=== PATIENT | female | born 1980 | race Caucasian/White ===

== ENCOUNTER 2020-12-14 14:51 | Emergency (ER) | payer SELFPAY ==
--- NOTE | 2020-12-14 15:15 | PC.NURSE ---
Call to waiting room, no answer. Per other patients waiting in waiting room pt was seen going to her car and leaving.
== END 2020-12-14 15:15 | disposition left against medical advice (07) ==
LOC: ANHED 17:41
DX: Z53.21 Procedure and treatment not carried out due to patient leaving prior to being seen by health care provider (principal)
CPT/HCPCS: 99199

== ENCOUNTER 2020-12-14 16:20 | Observation (INO) | payer SELFPAY ==
--- NOTE | ~2020-12-14 | CT_ITS ---
EXAMINATION: CT abdomen pelvis w con INDICATION: Generalized abdominal pain TECHNIQUE: Computed tomographic images of the abdomen and pelvis were obtained after the administrati on of 100 cc of Omnipaque 350 intravenous contrast. The dose-length product (DLP) was 1044.95 mGy-cm. Automated exposure control and iterative reconstruction technique were employed. COMPARISON: None available FINDINGS: The lung bases are clear. The heart size is normal. There is a small sliding hiatal hernia. The liver is diffusely low in attenuation when compared with the spleen, consistent with hepatic alisia atosis. The spleen, pancreas, gallbladder, and right adrenal gland are normal. There is a 1.4 cm mass of the left. The kidneys are unremarkable. No pathologically enlarged abdominal or pelvic lymph node s are identified. There is no free intraperitoneal gas or evidence of bowel obstruction. IMPRESSION: 1. No CT correlate for the patient's symptoms. 2. 1.4 cm left adrenal mass, likely benign in the absence of known malignancy. Consider follow-up adr enal CT in 12 months. Reviewed, dictated and finalized at location A. IMPRESSION: 1. No CT correlate for the patient's symptoms. 2. 1.4 cm left adrenal mass, likely benign in the absence of known malignancy. Consider follow-up adrenal CT in 12 months.
[2020-12-14 16:46] VITALS: BP 125/89; PULSE 64; RESP 18; TEMP 36.8; O2SAT 100
--- NOTE | 2020-12-14 16:50 | PC.NURSE ---
pt noted to have scarring to where one would draw labs. pt to be drawn in back when placed in room.
--- NOTE | 2020-12-14 17:04 | PC.NURSE ---
When pt placed back in waiting room, states this is the slowest [facility] I've ever been to . Explained to patient that it is very busy and that there are multiple people waitiing to be seen. Pt states I'm calling an ambulance and going somewhere else . Explained to patient that that is her right. Also explained that I will remove the IV if she is planning to leave. Pt requesting ice chips po. Explained that due to pt's complaint pf n/v that we cannot give her anything to drink.
--- NOTE | 2020-12-14 17:09 | PC.NURSE ---
Pt yelling loudly and wretching loudly. Pt has had large amt of emesis on floor in waiting room, yelling help me! Oh My God I'm dying!! . Note half drank bottle of water near patient. Pt given emesis bag and told not to drink any further water.
--- NOTE | 2020-12-14 18:28 | PC.NURSE ---
Pt up to intake desk, lying on desk, crying, moaning loudly, take me back now, I'm dying!! . Explained that no bed is available at this time. Pt continues to moan loudly and complain loudly about the wait and that she is unable to wait any longer. Teresa, bumper machine operator to desk to speak with patient and assist back to waiting room. Pt continues to yell loudly oh please, God, please!! .
[2020-12-14 18:53] VITALS: PULSE 61; RESP 14; O2SAT 98
[2020-12-14 19:00] VITALS: PULSE 70; RESP 16; O2SAT 98
--- NOTE | 2020-12-14 19:09 | ED.GENADULT ---
HPI - General Adult General Chief complaint: Abdominal Pain Stated complaint: abd pain/n/v/d Time Seen by Provider: 12/14/20 19:06 Source: RN notes reviewed History of Present Illness HPI narrative: Patient presents to emergency department from home for nausea vomiting. Patient states she has been having intractable nausea vomiting since yesterday associated with abdominal pain in the mid abdomen. Pain is described as cramping in nature. Patient denies any fevers or chills chest pain shortness of breath diarrhea or any other symptoms. States she is started on Suboxone approximately 1 week ago for heroin use denies any heroin use in the past 1 week Related Data Home Medications Medication Instructions Recorded Confirmed Suboxone 12/14/20 Allergies Allergy/AdvReac Type Severity Reaction Status Date / Time No Known Allergies Allergy Verified 12/14/20 16:51 Review of Systems Review of Systems: Narrative: Gen.: Denies fevers or chills ENT: Denies congestion Respiratory: Denies shortness of breath or cough CV: Denies chest pain or palpitations GI: See HPI denies burning, urgency, frequency or hematuria Musculoskeletal: Denies back pain or muscle pain Neuro: Denies numbness, tingling, weakness or focal weakness Skin: Denies rash Except as documented, all other systems reviewed and negative PMFSH Past Medical History Medical History (Updated 12/15/20 @ 00:31 by Juan Fernandez DO) Patient denies significant medical history Social History Social History (Updated 12/14/20 @ 19:10 by Juan Fernandez DO) Smoking status: Current every day smoker Gender identity (if verbalized by the patient): Female Exam Narrative: Exam Narrative: APPEARANCE: No acute distress, nontoxic, resting in bed HEENT: Normocephalic, atraumatic, OMM RESPIRATORY: No respiratory distress, clear to auscultation bilaterally with no rhonchi wheezing or rales CARDIOVASCULAR: RRR s murmur ABDOMINAL: Soft nondistended tender to palpation epigastric and right upper quadrant left upper quadrant no tenderness in right lower quadrant left lower quadrant no rebound or guarding MUSCULOSKELETAl: Moves all extremities. No clubbing, cyanosis or edema. NEURO: Awake and alert. Following commands, speech normal, no focal deficits SKIN:: Warm, dry. 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 Russo presentation work-up agrees with admission at this time Discussed with patient and family results of workup and diagnosis. Discussed need for admission. Patient and family understand and agree to current treatment plan Vital Signs Vital signs: Vital Signs Temperature 98.2 F 12/14/20 16:46 Pulse Rate 64 12/14/20 16:46 Respiratory Rate 18 12/14/20 16:46 Blood Pressure 125/89 12/14/20 16:46 Pulse Oximetry 100 12/14/20 16:46 Temperature 98.2 F 12/14/20 16:46 Pulse Rate 69 12/14/20 22:31 Respiratory Rate 18 12/14/20 22:31 Blood Pressure 142/89 H 12/14/20 22:31 Pulse Oximetry 97 12/14/20 22:31 Medical Decision Making Vital Signs Vital Signs: Vital Signs Temperature 98.2 F 12/14/20 16:46 Pulse Rate 64 12/14/20 16:46 Respiratory Rate 18 12/14/20 16:46 Blood Pressure 125/89 12/14/20 16:46 Pulse Oximetry 100 12/14/20 16:46 Temperature 98.2 F 12/14/20 16:46 Pulse Rate 69 12/14/20 22:31 Respiratory Rate 18 12/14/20 22:31 Blood Pressure 142/89 H 12/05
--- NOTE | 2020-12-14 19:16 | PC.NURSE ---
Pt. in room screaming help me, help me, help me, I need help now! Pt. being unreasonable. Pt. asked to stop screaming so they can be assessed. Pt. complies.
[2020-12-14] MEDS: SODIUM CHLORIDE 0.9% IV 1,000 ML 999 ML IV CONT ×2 (19:27→22:42)
[2020-12-14] MEDS: ONDANSETRON INJ 4 MG/2 ML VIAL IV PUSH (19:28)
[2020-12-14] MEDS: KETOROLAC 30 MG/ML VIAL (*BKC) IV PUSH (19:28)
[2020-12-14 19:32] VITALS: BP 145/90; PULSE 54; RESP 20; O2SAT 100
[2020-12-14 19:34] LABS: Basophils Percent Auto 0.3 % (0.2-1.2); Hematocrit 46.2 % (37.0-47.0); Hemoglobin 14.5 g/dL (12.0-15.0); Immature Granulocyte Absolute 0.04 K/mm3 (0.00-0.031); Immature Granulocyte Percent A 0.3 % (0-0.5); Lymphocytes Absolute Auto 1.79 K/mm3 (0.9-3.2); Lymphocytes Percent Auto 12.9 % (18.3-44.2); Mean Corpuscular HGB Conc 31.4 g/dl (32-36); Mean Corpuscular Hemoglobin 25.3 pg (26-34); Mean Corpuscular Volume 80.5 fl (80-100); Mean Platelet Volume 9.1 fl (7.4-10.4); Monocytes Absolute Auto 0.6 K/mm3 (0.1-0.6); Monocytes Percent Auto 4.4 % (2.6-8.5); Neutrophils Absolute Auto 11.4 K/mm3 (1.3-6.7); Neutrophils Percent Auto 82.1 % (45.5-73.1); Platelet Count Result 327 k/mm3 (150-375); Red Blood Count 5.74 M/mm3 (4.2-5.4); Red Cell Distribution Width 13.9 % (11.5-14.5); White Blood Count 13.9 K/mm3 (4.5-10.0)
[2020-12-14 19:45] LABS: Alanine Aminotransferase 61 U/L (4-35); Albumin Level 4.4 g/dL (3.5-5.1); Alkaline Phosphatase 135 U/L (38-126); Anion Gap 7 mmol/L (8-16); Aspartate Amino Transferase 48 U/L (14-36); Bilirubin,Total 0.7 mg/dL (0.2-1.3); Blood Urea Nitrogen 12 mg/dL (7-17); Carbon Dioxide 24 mmol/L (22-30); Chloride 107 mmol/L (98-107); Estimated CRCL calculation 113 ml/min; Estimated Glomerular Filt Rate > 60; Glucose 112 mg/dL (65-105); Lipase 45 U/L (23-300); Potassium 3.9 mmol/L (3.4-5.0); Sodium 138 mmol/L (137-145)
[2020-12-14] MEDS: LORazepam INJ (*CRX) 2 MG/ML VIAL 1 MG IV PUSH (20:33)
[2020-12-14 20:40] LABS: Add Urine Microscopic? YES; Appearance Urine Cloudy (Clear); Bacteria Urine Trace /hpf; Bilirubin Urine Negative (Negative); Blood Urine 1+ (Negative); Color Urine Yellow (Yellow); Glucose Urine UA Negative (Negative); Ketones Urine 1+ mg/dL (Negative); Leukocyte Esterase Ur Negative LEU/UL (Negative); Mucus Urine Heavy /lpf; Nitrate Urine Negative (Negative); Protein Urine 2+ mg/dL (Negative); Specific Grav Ur 1.028 (1.001-1.035); Squamous Epithelial Cell Urine Moderate /hpf (Few); WBC Urine 0-3 /hpf
[2020-12-14 22:31] VITALS: BP 142/89; PULSE 69; RESP 18; O2SAT 97
[2020-12-14] MEDS: DICYCLOMINE HCL INJ 20 MG/2 ML VIAL IM (22:42)
[2020-12-14] MEDS: PROMETHAZINE HCL 25 MG/ML AMPUL 12.5 MG IV PUSH (22:42)
[2020-12-14] MEDS: SODIUM CHLORIDE 0.9% IV 50 ML 100 ML (22:43)
[2020-12-14] MEDS: PANTOPRAZOLE SODIUM IV 40 MG VIAL IV PUSH (23:48)
[2020-12-15] MEDS: diphenhydrAMINE HCl INJ 50 MG/ML VIAL 25 MG IV PUSH (00:07)
[2020-12-15 00:20] VITALS: BP 154/83; PULSE 62; RESP 18; TEMP 37.2; O2SAT 100; BMI 33.7
--- NOTE | 2020-12-15 00:41 | ADMGEN ---
This patient, Ayesha Velasquez, was admitted to [facility] Surg Room 333-01. Patient/family oriented to hospital policies and general routines including ID bracelet, bed and alarms, visiting hours, pain management, procedures, bathroom and other care routines, personal items, smoking policy, room service/diet, and visiting hours. Information on how to activate the Rapid Response Team has been discussed. Patient/Family are encouraged to report perceived risks to care and to ask questions if they do not understand what they are told or what they should do.
--- NOTE | 2020-12-15 03:08 | PM.IMHP ---
H&P: HPI History of Present Illness Date/Time: 12/15/20 03:08 patient who is lives in [place]. The patient stated that she is here for a work related event. The patient has a history of heroin use and had been in rehab in the past. The patient is on some back some for heroin withdrawal. However the patient stated she no longer wants to take some back stone. And that she had been on clonidine in the past. She had been crying in the emergency room. The patient stated that she has intractable nausea vomiting since yesterday and abdominal pain. She has cramping pain. She denies any fevers chills or shortness of breath. No diarrhea. Patient stated the last time she used heroin was approximately week ago. Her CT of the abdomen was read as no acute CT correlate for the patient's symptoms. 1.4 cm left adrenal mass, likely benign in the absence of known malignancy consider follow-up adrenal CT in 12 months. IV fluids but her IV has gone bad since then and we have not been able to replace it. She has gotten Zofran, Toradol, Ativan, Phenergan, Bentyl IM, IV Tylenol, Benadryl and Protonix. The patient is being admitted to observation status on the date of service of 12/15/2020. Chief Complaint: Intractable nausea vomiting. Review of Systems Review of Systems: All systems reviewed & are unremarkable except as noted in HPI and below Constitutional: Constitutional: Reports as per HPI and Reports no additional constitutional complaints Eyes: Eyes: Reports as per HPI and Reports no additional eye complaints ENT: Reports system reviewed and no additional complaints, except as documented and Reports Normal hearing present Cardiovascular: Cardiovascular: Reports no additional cardiovascular complaints Respiratory: Respiratory: Reports no additional respiratory complaints and Reports no additional respiratory complaints Gastrointestinal: Gastrointestinal: Reports as per HPI and Reports no additional gastrointestinal complaints Musculoskeletal: Musculoskeletal: Reports no additional musculoskeletal complaints Integumentary/Breasts: Skin/Breast: Reports system reviewed and no additional complaints, except as docu and Reports as per HPI Neurologic: Reports system reviewed and no additional complaints, except as documented, Reports as per HPI and Reports Normal hearing present Psychiatric: Psychiatric: Reports no additional psychiatric complaints and Reports as per HPI Endocrine: Endocrine: Reports no additional endocrine complaints Hematologic/Lymphatic: Hematologic/Lymphatic: Reports no additional hematologic/lymphatic complaints Allergic/Immunologic: Allergic/Immunologic: Reports no additional allergic/immunologic complaints PMFSH Past Medical History Medical History (Updated 12/15/20 @ 03:16 by Moon Sousa NP) Heroin abuse Patient denies significant medical history Tobacco abuse Surgical History Surgical History (Updated 12/15/20 @ 03:16 by Moon Sousa NP) H/O abdominal surgery Family History Family History Mother Depression Social History Social History (Updated 12/15/20 @ 03:24 by Moon Sousa NP) Social History: 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 Patient smokes a pack cigarettes a day. She does not have a durable power commercial attorney and is listed as a full code. The patient told staff that she is traveling for a job to work a [employer] unit. The patient stated that she does not have any children and that she is . Smoking packs per day: 1 Smoking cigarettes per day: 20.0 Smoking status: Current every day smoker Tobacco type: cigarettes Alcohol intake: never Substance use: current Substance use type: marijuana Other substance usage details: former heroin user per pt Gender identity (if verbalized by the patient): Female Spirit
[2020-12-15] MEDS: HALOPERIDOL LACTATE 5 MG/ML VIAL IM (03:48)
[2020-12-15] MEDS: LORazepam (*CRX) 0.5 MG TABLET PO ×3 (05:43→20:33)
[2020-12-15 06:00] VITALS: BP 148/80; PULSE 70; RESP 18; TEMP 36.6; O2SAT 100
[2020-12-15 06:09] LABS: Basophils Absolute Auto 0.1 K/mm3 (0.0-0.1); Basophils Percent Auto 0.5 % (0.2-1.2); Hematocrit 38.7 % (37.0-47.0); Hemoglobin 12.4 g/dL (12.0-15.0); Immature Granulocyte Absolute 0.07 K/mm3 (0.00-0.031); Immature Granulocyte Percent A 0.5 % (0-0.5); Lymphocytes Absolute Auto 3.14 K/mm3 (0.9-3.2); Mean Corpuscular Hemoglobin 25.4 pg (26-34); Mean Corpuscular Volume 79.3 fl (80-100); Mean Platelet Volume 9.4 fl (7.4-10.4); Monocytes Absolute Auto 1.1 K/mm3 (0.1-0.6); Monocytes Percent Auto 7.5 % (2.6-8.5); Neutrophils Absolute Auto 10.6 K/mm3 (1.3-6.7); Neutrophils Percent Auto 70.5 % (45.5-73.1); Platelet Count Result 304 k/mm3 (150-375); Red Blood Count 4.88 M/mm3 (4.2-5.4); Red Cell Distribution Width 13.7 % (11.5-14.5)
[2020-12-15 06:25] LABS: Alanine Aminotransferase 48 U/L (4-35); Albumin Level 3.9 g/dL (3.5-5.1); Alkaline Phosphatase 127 U/L (38-126); Anion Gap 5 mmol/L (8-16); Aspartate Amino Transferase 31 U/L (14-36); Bilirubin,Total 0.5 mg/dL (0.2-1.3); Blood Urea Nitrogen 12 mg/dL (7-17); Calcium 8.6 mg/dL (8.4-10.2); Carbon Dioxide 24 mmol/L (22-30); Chloride 108 mmol/L (98-107); Estimated CRCL calculation 138 ml/min; Estimated Glomerular Filt Rate > 60; Glucose 102 mg/dL (65-105); Lactate Dehydrogenase 371 U/L (313-618); Magnesium 1.7 mg/dL (1.6-2.3); Potassium 3.3 mmol/L (3.4-5.0); Sodium 137 mmol/L (137-145)
[2020-12-15] MEDS: FAMOTIDINE 20 MG TABLET PO ×2 (09:38→20:34)
[2020-12-15] MEDS: cloNIDine HCL 0.05 MG TABLET PO ×2 (09:38→20:34)
[2020-12-15] MEDS: ONDANSETRON HCL ODT 4 MG TABLET PO (09:41)
[2020-12-15] MEDS: ENOXAPARIN 40 MG/0.4 ML SYRINGE SUB-Q (09:43)
--- NOTE | 2020-12-15 11:45 | PM.IMPN ---
Progress Note: A&P Additional Plan # Acute gastroenteritis with intractable nausea, vomiting, diarrhea: zofran prn. she has been off iv heroin about a week ago and has been on suboxone. no other symptoms of opiate withdrawal on evaluation. unlikely reason. likely acute gastroenteritis. will get stool cutlure, ova and parasite. on PPI. urine drug screen pending. # abdominal pain: likelyf rom agastroenteirtis. on famotidine. lipiase normal. # heroin abuse: recently put on suboxone. advised to continue suboxone for opioid dependence and to decrease relapse. on clonidine for withdrawal which will be continued. # left adrenal Mass: FU CT in a year as o pbasis. # Tobacco abuse: # leukocytosis: still high. unclear etiology. may be from gastroenteritis. # hypokalemia: repalce k # DVT proph: lovenox Subjective Date/time seen: 12/15/20 11:45 Interval history: feels better, some abdmoinal pain, but feels hungry. no further diarrhea. nausea present, no vomiting. she would liek to try some jello Review of Systems Review of Systems: Narrative: - CONSTITUTIONAL: Denies weight loss, fever and chills. - HEENT: Denies changes in vision and hearing - RESPIRATORY: Denies SOB and cough. - CV: Denies palpitations and CP. - GI: reports abdominal pain, nausea, vomiting and diarrhea. - : Denies dysuria and urinary frequency. - MSK: Denies myalgia and joint pain. - SKIN: Denies rash and pruritus. - NEUROLOGICAL: Denies headache and syncope. - PSYCHIATRIC: Denies recent changes in mood. Denies anxiety and depression. All systems reviewed & are unremarkable except as noted in HPI and below Exam Narrative: Exam Narrative: GENERAL: The patient is well developed, not in acute distress HEENT: Nonicteric sclerae, PERRLA, EOMI. Oropharynx clear. Moist mucous membranes. Conjunctivae appear well perfused. CHEST: Chest wall is nontender. HEART: Regular rate and rhythm without murmur, rubs, or gallops LUNGS: Clear to auscultation bilaterally. no respiratory distress ABDOMEN: Soft, positive bowel sounds, tender epigastric region, no organomegaly. SKIN: No rash, no excessive bruising, petechiae, or purpura. NEUROLOGIC: Cranial nerves II-XII intact, alert and oriented x 3, no gross motor deficits EXTREMITIES: no edema, cyanosis or clubbing Objective Data Vital Signs Vital Signs: Vital Signs - 24 hr 12/14/20 16:46 12/14/20 18:53 12/14/20 19:00 Temperature 98.2 F Pulse Rate 64 61 70 Respiratory Rate 18 14 16 Blood Pressure 125/89 Pulse Oximetry 100 98 98 12/14/20 19:32 12/14/20 22:31 12/15/20 00:20 Temperature 99 F Pulse Rate 54 L 69 62 Respiratory Rate 20 18 18 Blood Pressure 145/90 H 142/89 H 154/83 H Pulse Oximetry 100 97 100 12/15/20 06:00 Temperature 97.8 F Pulse Rate 70 Respiratory Rate 18 Blood Pressure 148/80 H Pulse Oximetry 100 Intake/Output Intake/Output: Intake & Output 12/12/20 12/13/20 12/14/20 12/15/20 23:59 23:59 23:59 23:59 Intake Total 1999 0 Balance 1999 0 Meds/Results Medications: Active Medications Generic Name Dose Route Start Last Admin Trade Name Freq PRN Reason Stop Dose Admin Clonidine HCl 0.05 mg 12/15/20 09:00 12/15/20 09:38 Clonidine Hcl 0.05 Mg Tablet PO 0.05 mg Q12HR JEFF Administration Enoxaparin Sodium 40 mg 12/15/20 09:00 12/15/20 09:43 Enoxaparin 40 Mg/0.4 Ml Syringe SUB-Q 40 mg DAILY JEFF Administration Famotidine 20 mg 12/15/20 09:00 12/15/20 09:38 Famotidine 20 Mg Tablet PO 20 mg Q12HR JEFF Administration Lorazepam 0.5 mg 12/15/20 03:07 12/15/20 05:43 Lorazepam (*Crx) 0.5 Mg Tablet PO 0.5 mg Q6H PRN Administration Anxiety Nicotine 1 patch 12/15/20 09:00 12/15/20 09:41 Nicotine (*Pbkc) 21 Mg Patch TRANSDERM Not Given QAM JEFF Ondansetron HCl 4 mg 12/15/20 03:18 12/15/20 09:41 Ondansetron Hcl Odt 4 Mg Tablet PO 4 mg Q6H PRN Administration Nausea And Vomiting Radiology Results: IT
[2020-12-15] MEDS: POTASSIUM CHLORIDE 20 MEQ TABLET 40 MEQ PO (12:39)
[2020-12-15] MEDS: NICOTINE (*PBKC) 21 MG PATCH 1 PATCH TRANSDERM (12:39)
[2020-12-15 14:00] VITALS: BP 131/68; PULSE 99; RESP 18; TEMP 36.6; O2SAT 99
[2020-12-15] MEDS: MAGNESIUM OXIDE 400 MG TABLET PO (14:30)
[2020-12-15 15:42] VITALS: PULSE 89; RESP 16; O2SAT 99
[2020-12-15 17:26] LABS: Amphetamine Screen Urine Negative (Negative); Barbiturate Screen Urine Negative (Negative); Benzodiazepines Screen Urine Negative (Negative); Cannabinoid Screen Urine Positive (Negative); Cocaine Screen Urine Negative (Negative); Methadone Screen Urine Negative (Negative); Opiate Screen Urine Negative (Negative); Phencyclidine Screen Urine Negative (Negative)
[2020-12-15] MEDS: KETOROLAC 15 MG/ML VIAL (*BKC) IV PUSH (20:32)
[2020-12-15 22:00] VITALS: BP 151/79; PULSE 94; RESP 18; TEMP 36.4; O2SAT 98
[2020-12-16] MEDS: traMADol HCL (*CRX) 25 MG TABLET PO (03:10)
[2020-12-16] MEDS: LORazepam (*CRX) 0.5 MG TABLET PO ×2 (03:10→09:12)
[2020-12-16 06:00] VITALS: BP 149/76; PULSE 53; RESP 16; TEMP 36.3; O2SAT 100
[2020-12-16 08:22] LABS: Basophils Absolute Auto 0.1 K/mm3 (0.0-0.1); Basophils Percent Auto 0.8 % (0.2-1.2); Eosinophils Percent Auto 0.4 % (0-4.4); Hematocrit 44.4 % (37.0-47.0); Hemoglobin 14.2 g/dL (12.0-15.0); Immature Granulocyte Absolute 0.11 K/mm3 (0.00-0.031); Immature Granulocyte Percent A 1.1 % (0-0.5); Lymphocytes Percent Auto 25.7 % (18.3-44.2); Mean Corpuscular Hemoglobin 25.6 pg (26-34); Mean Platelet Volume 9.3 fl (7.4-10.4); Monocytes Absolute Auto 0.8 K/mm3 (0.1-0.6); Monocytes Percent Auto 7.8 % (2.6-8.5); Neutrophils Absolute Auto 6.5 K/mm3 (1.3-6.7); Neutrophils Percent Auto 64.2 % (45.5-73.1); Platelet Count Result 301 k/mm3 (150-375); Red Blood Count 5.55 M/mm3 (4.2-5.4); Red Cell Distribution Width 13.5 % (11.5-14.5); White Blood Count 10.1 K/mm3 (4.5-10.0)
--- NOTE | 2020-12-16 08:24 | PC.NURSE ---
Patient had multiple requests for pain medication for her back and anti-anxiety medication. She also demanded another nicotine patch and food pot feeder before breakfast. Diet was advanced and 2x orders for pain medications were ordered. These appeared to satisfy her demands for approximately 2 hours with each intervention.
[2020-12-16 08:34] LABS: Alanine Aminotransferase 41 U/L (4-35); Albumin Level 4.2 g/dL (3.5-5.1); Alkaline Phosphatase 108 U/L (38-126); Anion Gap 9 mmol/L (8-16); Aspartate Amino Transferase 33 U/L (14-36); Bilirubin,Total 0.7 mg/dL (0.2-1.3); Blood Urea Nitrogen 10 mg/dL (7-17); Carbon Dioxide 26 mmol/L (22-30); Chloride 104 mmol/L (98-107); Estimated CRCL calculation 120 ml/min; Estimated Glomerular Filt Rate > 60; Glucose 127 mg/dL (65-105); Magnesium 1.9 mg/dL (1.6-2.3); Potassium 3.4 mmol/L (3.4-5.0); Sodium 139 mmol/L (137-145)
[2020-12-16] MEDS: cloNIDine HCL 0.05 MG TABLET PO (09:04)
[2020-12-16] MEDS: FAMOTIDINE 20 MG TABLET PO (09:04)
[2020-12-16] MEDS: NICOTINE (*PBKC) 21 MG PATCH 1 PATCH TRANSDERM (09:08)
[2020-12-16] MEDS: ENOXAPARIN 40 MG/0.4 ML SYRINGE SUB-Q (09:09)
--- NOTE | 2020-12-16 10:57 | PM.DS ---
DS: Admitting Diagnosis Admitting Diagnosis Admitting Diagnosis: nausea, vomtign, diarrhea DS: Discharge Diagnosis Discharge Diagnosis (1) Heroin abuse: Code(s): F11.10 - Opioid abuse, uncomplicated Status: Chronic (2) Intractable vomiting with nausea: Code(s): R11.2 - Nausea with vomiting, unspecified Status: Acute (3) Abdominal pain, diffuse: Code(s): R10.84 - Generalized abdominal pain Status: Acute (4) Tobacco abuse: Code(s): Z72.0 - Tobacco use Status: Chronic DS: Summary Hospital Course Hospital Course: # Acute gastroenteritis with intractable nausea, vomiting, diarrhea: zofran prn. she has been off iv heroin about a week ago and has been on suboxone. no other symptoms of opiate withdrawal on evaluation. unlikely reason. likely acute gastroenteritis. stool studies sent but could not be evaluated. she is already improved. advanced her on diet and tolerated well. symptomatic treatment with zofran prn, pepcid. urine drug screen positive for THC # abdominal pain: likelyf rom agastroenteirtis. on famotidine. lipiase normal. improving. toelrated diet. CT abmen with no acute findings. # heroin abuse: recently put on suboxone. advised to continue suboxone for opioid dependence and to decrease relapse. on clonidine for withdrawal which will be continued. # left adrenal Mass: FU CT in a year as o pbasis. # Tobacco abuse: # leukocytosis: still high. unclear etiology. may be from gastroenteritis. improving without any antibtoics. likely reactive. # hypokalemia: repalce k # DVT proph: lovenox Status at Discharge Functional status at discharge: independent ambulation Overall status at discharge: patient is progressing back to baseline Time Spent with Patient Time attestation: Total time spent providing and/or coordinating discharge services:31 mins Time spent: Greater than 30 minutes Exam Narrative: Exam Narrative: GENERAL: The patient is well developed, not in acute distress HEENT: Nonicteric sclerae, PERRLA, EOMI. Oropharynx clear. Moist mucous membranes. Conjunctivae appear well perfused. CHEST: Chest wall is nontender. HEART: Regular rate and rhythm without murmur, rubs, or gallops LUNGS: Clear to auscultation bilaterally. no respiratory distress ABDOMEN: Soft, positive bowel sounds, mild tender epigastric region which is much improved, no organomegaly. SKIN: No rash, no excessive bruising, petechiae, or purpura. NEUROLOGIC: Cranial nerves II-XII intact, alert and oriented x 3, no gross motor deficits EXTREMITIES: no edema, cyanosis or clubbing DS: Data Data Completed and Pending Labs on day of discharge: Labs from last 24 hours 12/16/20 12/16/20 12/15/20 08:14 08:14 17:01 WBC 10.1 H RBC 5.55 H Hgb 14.2 Hct 44.4 MCV 80.0 MCH 25.6 L MCHC 32.0 RDW 13.5 Plt Count 301 MPV 9.3 Immature Gran % (Auto) 1.1 H Neut % (Auto) 64.2 Lymph % (Auto) 25.7 [place] % (Auto) 7.8 Eos % (Auto) 0.4 Baso % (Auto) 0.8 Lymph # (Auto) 2.60 [place] # (Auto) 0.8 H Eos # (Auto) 0.0 Baso # (Auto) 0.1 Abs Immat Gran (auto) 0.11 H Absolute Neuts (auto) 6.5 Absolute Nucleated RBC 0.0 Nucleated RBC % 0.0 Sodium 139 Potassium 3.4 Chloride 104 Carbon Dioxide 26 Anion Gap 9 BUN 10 Creatinine 0.70 Estim Creat Clear Calc 120 Estimated GFR > 60 Glucose 127 H Calcium 9.0 Magnesium 1.9 Total Bilirubin 0.7 AST 33 ALT 41 H Alkaline Phosphatase 108 Total Protein 8.0 Albumin 4.2 Urine Opiates Screen Negative Urine Methadone Screen Negative Ur Barbiturates Screen Negative Ur Phencyclidine Scrn Negative Ur Amphetamine Screen Negative U Benzodiazepines Scrn Negative Urine Cocaine Screen Negative U Cannabinoids Screen Positive A Discharge Plan Discharge Attending physician on discharge: Danielito Temple Discharging Clinician: Danielito Temple
== END 2020-12-16 13:15 | disposition home or self-care (01) ==
LOC: ANHED 19:06 → ANH3MEDSUR 23:51
PROVIDERS: Emergency Medicine; Nurse Practitioner; Admitting Provider Internal Medicine; Emergency Provider Emergency Medicine; Visit Provider Internal Medicine
DX: R11.2 Nausea with vomiting, unspecified (principal); R10.84 Generalized abdominal pain; F11.10 Opioid abuse, uncomplicated; F17.210 Nicotine dependence, cigarettes, uncomplicated
CPT/HCPCS: 36415; 74177; 80053; 80307; 81001; 81025; 83615; 83690; 83735; 84443; 85025; 96361; 96372; 96374; 96375; 99285; A9270; C9113; G0378; G0379; J0500; J1200; J1630; J1650; J1885; J2060; J2405; J2550; J7030; Q9967